=== PATIENT | male | born 1990 | race Caucasian/White ===

== ENCOUNTER 2017-11-10 22:53 | Emergency (ER) | payer SELFPAY ==
[~2017-11-10] VITALS: Ht 175.3 cm; Wt 97.5 kg
[2017-11-10 23:04] VITALS: BP 144/91
[2017-11-11] MEDS ORDERED: HYDROcodone-ACET 10/325MG TAB PO ONE (03:30)
== END 2017-11-11 03:51 | disposition home or self-care (01) ==
LOC: ER 22:57
DX: S13.4XXA Sprain of ligaments of cervical spine, initial encounter (principal); M62.838 Other muscle spasm; S80.01XA Contusion of right knee, initial encounter; V43.52XA Car driver injured in collision with other type car in traffic accident, initial encounter; Y93.89 Activity, other specified; Y99.8 Other external cause status; Y92.410 Unspecified street and highway as the place of occurrence of the external cause
CPT/HCPCS: 73090; 73562